=== PATIENT | female | born 1975 | race Caucasian/White ===

== ENCOUNTER 2018-07-20 15:29 | Inpatient (IN) | payer MEDICAID, OTHER ==
[~2018-07-20] VITALS: Ht 175.3 cm; Wt 104.5 kg
[2018-07-20] MEDS ORDERED: LORA1TAB3 PO (15:59)
[2018-07-20] MEDS ORDERED: TRAZ-220 PO (15:59)
[2018-07-20] MEDS ORDERED: OXCA300T29 PO (15:59)
[2018-07-20] MEDS ORDERED: ZIPR40CA2 PO (15:59)
[2018-07-20] MEDS ORDERED: ARIP10TA8 PO (15:59)
[2018-07-20] MEDS ORDERED: METF-445 PO (15:59)
[2018-07-20 17:03] LABS: BASOPHILS % (AUTO) 0.9 % (0.0-2.0); EOSINOPHILS % (AUTO) 1.9 % (1.0-6.0); HEMATOCRIT 30.5 % (36-46); HEMOGLOBIN 10.6 g/dL (12.0-16.0); LYMPHOCYTES # (AUTO) 1.5 K/uL (1.0-4.8); LYMPHOCYTES % (AUTO) 20.1 % (22.0-44.0); MEAN CORPUSCULAR HEMOGLOBIN 29.1 pg (26.0-34.0); MEAN CORPUSCULAR HGB CONC 34.8 G/dL (31.0-37.0); MEAN CORPUSCULAR VOLUME 84 fL (80-100); MONOCYTES # (AUTO) 0.5 K/uL (0.1-1.0); MONOCYTES % (AUTO) 6.7 % (2.0-9.0); NEUTROPHILS # (AUTO) 5.4 K/uL (1.8-7.7); NEUTROPHILS % (AUTO) 70.4 % (40.0-70.0); PLATELET COUNT (AUTO) 252 K/uL (150-450); RED BLOOD CELL COUNT(AUTO) 3.65 MIL/uL (4.00-5.20)
[2018-07-20 17:18] LABS: ANION GAP 10 mmol/L (8-16); CALCIUM, TOTAL 8.9 mg/dL (8.8-10.5); CARBON DIOXIDE 24 mmol/L (22-29); CHLORIDE 103 mmol/L (98-107); CREATININE 0.71 mg/dL (0.60-1.30); GLOMERULAR FILTR. RATE CALC > 60 mL/min (>60); GLUCOSE,RANDOM 171 mg/dL (70-110); SODIUM SERUM 137 mmol/L (136-145); UREA NITROGEN, BLOOD 13 mg/dL (7-18)
[2018-07-20 17:19] LABS: SALICYLATE < 2.8 mg/dL (2.8-20.0)
[2018-07-20 17:28] LABS: ACETAMINOPHEN < 2 mcg/mL (10-30); ALANINE AMINOTRANSFERASE 35 U/L (12-78); ALBUMIN 3.4 g/dL (3.4-5.0); ALKALINE PHOSPHATASE 97 U/L (46-116); ASPARTATE AMINOTRANSFERASE 17 U/L (15-37); BILIRUBIN,TOTAL 0.8 mg/dL (0.1-1.0); HCG,QUANTITATIVE < 1 mIU/mL (0-6); TOTAL PROTEIN, SERUM 7.1 g/dL (6.4-8.2)
[2018-07-20 17:39] LABS: APPEARANCE,URINE CLEAR (CLEAR); BILIRUBIN,URINE NEGATIVE (NEGATIVE); GLUCOSE, URINE (UA) NEGATIVE (NEGATIVE); KETONES,URINE NEGATIVE (NEGATIVE); LEUKOCYTE ESTERASE ,URINE NEGATIVE (NEGATIVE); NITRATE,URINE NEGATIVE (NEGATIVE); OCCULT BLOOD,URINE TRACE (NEGATIVE); PH,URINE 5.5 (5.0-8.0); PROTEIN,URINE SEE CONFIRM (NEGATIVE); UROBILINOGEN,URINE 0.2 mg/dL (<=1.0)
[2018-07-20 17:47] LABS: AMPHET/METH SCREEN,URINE NEGATIVE (NEGATIVE); BARBITURATE SCREEN, URINE NEGATIVE (NEGATIVE); BENZODIAZEPINES SCREEN,URINE NEGATIVE (NEGATIVE); CANNABINOID SCREEN,URINE NEGATIVE (NEGATIVE); COCAINE SCREEN,URINE NEGATIVE (NEGATIVE); METHADONE SCREEN, URINE NEGATIVE (NEGATIVE); OPIATE SCREEN,URINE NEGATIVE (NEGATIVE)
[2018-07-20 17:49] LABS: PHENCYCLIDINE SCREEN,URINE NEGATIVE (NEGATIVE)
[2018-07-20 17:53] LABS: BACTERIA,URINE Few /HPF (None Seen); SQUAMOUS EPITHELIAL CELL,UR Moderate /LPF (None Seen); SULFOSALICYLIC ACID,URINE 2+ (Negative); WBC,URINE 0-2 /HPF (0-5)
[2018-07-20] MEDS ORDERED: METF-960 PO (18:12)
[2018-07-20] MEDS ORDERED: ZOLPIDEM TARTRATE 10 MG TABLET PO PRN (18:15)
[2018-07-20] MEDS ORDERED: LORazepam 2 MG TABLET PO PRN (18:15)
[2018-07-20] MEDS ORDERED: QUEtiapine FUMARATE 100 MG TABLET PO PRN (18:15)
[2018-07-20] MEDS ORDERED: IBUPROFEN 400 MG TABLET PO PRN ×2 (18:15→22:15)
[2018-07-20 19:38] LABS: GLUCOSE,POINT OF CARE 119 MG/DL (70-110)
[2018-07-20 21:54] VITALS: BP 159/85
[2018-07-20] MEDS ORDERED: MAG HYDROX/AL HYDROX/SIMETH ES 30 ML SUSPENSION UDCUP PO PRN (22:15)
[2018-07-20] MEDS ORDERED: MAGNESIUM HYDROXIDE SUSPENSION 30 ML UDCUP PO PRN (22:15)
[2018-07-20] MEDS ORDERED: CloNIDine HCL 0.1 MG TABLET PO PRN (22:15)
[2018-07-20] MEDS ORDERED: ACETAMINOPHEN 325 MG TABLET PO PRN (22:15)
[2018-07-20] MEDS ORDERED: DOCUSATE SODIUM 100 MG CAPSULE PO PRN (22:15)
[2018-07-20] MEDS ORDERED: ONDANSETRON HCL 4 MG TABLET PO PRN (22:15)
[2018-07-20] MEDS ORDERED: ALBUTEROL SULFATE HFA 90 MCG/PUFF 8 GM INHALER IH PRN (22:15)
[2018-07-20] MEDS ORDERED: NICOTINE 14 MG/24 HOUR PATCH TD PRN (22:15)
[2018-07-20] MEDS ORDERED: LOPERAMIDE HCL 2 MG CAPSULE PO PRN (22:15)
[2018-07-20] MEDS ORDERED: PETROLATUM,WHITE 28 GM JELLY TP PRN (22:15)
[2018-07-20] MEDS ORDERED: PNEUMOCOCCAL VACCINE POLYVALENT 0.5 ML VIAL [PPSV23] IM ONE (23:45)
[2018-07-21 06:14] LABS: HEMOGLOBIN A1C 6.6 % (4.5-6.2)
[2018-07-21 06:38] LABS: THYROID STIMULATING HORMONE 1.13 uIU/mL (0.36-3.74)
[2018-07-21 06:49] LABS: GLUCOMETER DEV NAME(LOC) 3E.I; GLUCOSE,POINT OF CARE 116 MG/DL (70-110)
[2018-07-21] MEDS: MetFORMIN HCL 500 MG TABLET PO SCH (06:56)
[2018-07-21 09:34] VITALS: BP 163/87
[2018-07-21] MEDS: BuPROPion HCL XL 150 MG ER TABLET PO SCH (11:25)
[2018-07-21] MEDS: OXcarbazepine 300 MG TABLET PO SCH ×2 (11:25→16:33)
[2018-07-21] MEDS: ARIPiprazole 15 MG TABLET PO SCH (11:25)
[2018-07-21] MEDS: LISINOPRIL 5 MG TABLET PO SCH (12:33)
[2018-07-21 16:30] VITALS: BP_SYST 154; BP_SYST 155; BP_DIAS 86; BP_DIAS 91
[2018-07-22 05:59] LABS: GLUCOMETER DEV NAME(LOC) 3E.I; GLUCOSE,POINT OF CARE 188 MG/DL (70-110)
[2018-07-22] MEDS: MetFORMIN HCL 500 MG TABLET PO SCH (06:43)
[2018-07-22] MEDS: ARIPiprazole 15 MG TABLET PO SCH (09:18)
[2018-07-22] MEDS: OXcarbazepine 300 MG TABLET PO SCH ×2 (09:18→16:55)
[2018-07-22] MEDS: BuPROPion HCL XL 150 MG ER TABLET PO SCH (09:18)
[2018-07-22] MEDS: LISINOPRIL 5 MG TABLET PO SCH (09:19)
[2018-07-22 12:50] VITALS: BP 138/74
[2018-07-22 16:38] VITALS: BP 122/81
[2018-07-22] MEDS: GuaiFENesin/D-METHORPHAN [SUGAR-FREE] 200-20MG/10 ML SYRUP UDCUP PO PRN (16:55)
[2018-07-22 17:08] LABS: GLUCOMETER DEV NAME(LOC) 3E.I; GLUCOSE,POINT OF CARE 181 MG/DL (70-110)
[2018-07-23 02:06] VITALS: BP 154/83
[2018-07-23 06:14] LABS: GLUCOMETER DEV NAME(LOC) 3E.I; GLUCOSE,POINT OF CARE 228 MG/DL (70-110)
[2018-07-23] MEDS: MetFORMIN HCL 500 MG TABLET PO SCH (07:00)
[2018-07-23 08:15] VITALS: BP 152/76
[2018-07-23] MEDS: GuaiFENesin/D-METHORPHAN [SUGAR-FREE] 200-20MG/10 ML SYRUP UDCUP PO PRN (09:19)
[2018-07-23] MEDS: OXcarbazepine 300 MG TABLET PO SCH (09:20)
[2018-07-23] MEDS: LISINOPRIL 5 MG TABLET PO SCH (09:20)
[2018-07-23] MEDS: BuPROPion HCL XL 150 MG ER TABLET PO SCH (09:20)
[2018-07-23] MEDS: ARIPiprazole 15 MG TABLET PO SCH (09:20)
[2018-07-23 11:59] LABS: GLUCOMETER DEV NAME(LOC) 3E.I; GLUCOSE,POINT OF CARE 186 MG/DL (70-110)
[2018-07-23] MEDS ORDERED: ARIP15TA2 PO (13:50)
[2018-07-23] MEDS ORDERED: OXCA300T28 PO (13:50)
[2018-07-23] MEDS ORDERED: BUPR-47 PO (13:50)
[2018-07-23] MEDS ORDERED: LISI-660 PO (15:32)
== END 2018-07-23 16:05 | disposition home or self-care (01) | DRG 753 ==
LOC: EMS 15:31 → 3EI 20:00
DX: F31.4 Bipolar disorder, current episode depressed, severe, without psychotic features (principal); E11.9 Type 2 diabetes mellitus without complications; D64.9 Anemia, unspecified; G89.29 Other chronic pain; I10 Essential (primary) hypertension; M54.9 Dorsalgia, unspecified; T50.902A Poisoning by unspecified drugs, medicaments and biological substances, intentional self-harm, initial encounter; Y92.89 Other specified places as the place of occurrence of the external cause; Z91.5 Personal history of self-harm; Z79.899 Other long term (current) drug therapy
CPT/HCPCS: 83036; 84443; 93005; 99291; G0480; G0481